=== PATIENT | male | born 1945 | race Caucasian/White ===

== ENCOUNTER 2018-02-11 08:54 | Emergency (ER) | payer MEDICARE ==
[2018-02-11 09:02] VITALS: RESP 18
--- NOTE | 2018-02-11 09:13 | ED ---
General Adult HPI - General Chief complaint: Chest Pain Stated complaint: RT LUNG PAIN Time Seen by Provider: 02/11/18 09:07 Source: patient, RN notes reviewed Mode of arrival: ambulatory Limitations: no limitations - History of Present Illness Initial comments: Patient is a pleasant 72-year-old male presenting to the emergency Department with right-sided chest discomfort. Symptoms have been present for close to 3 weeks now. Discomfort is sharp and does radiate towards the back. Patient does have occasional cough with occasional white sputum. Patient denies dyspnea , nausea, or diaphoresis. Discomfort is increased with position changes. No history of similar symptoms previously. No abdominal pain. No fevers. No leg pain or leg swelling. Symptoms do not worsen with exertion. - Related Data Home Medications Medication Instructions Recorded Confirmed Atorvastatin [Lipitor] 40 mg PO HS 03/12/16 02/11/18 Glucosam/Stephan-Msm1/C/Ivan/Bosw 1 tab PO DAILY 03/12/16 02/11/18 [Glucosamine-Chondroitin Tablet] Lisinopril [Zestril] 10 mg PO DAILY 03/12/16 02/11/18 Rivaroxaban [Xarelto] 20 mg PO HS 03/12/16 02/11/18 Ubidecarenone [Co Q-10] 100 mg PO DAILY 03/12/16 02/11/18 Vitamin B Complex 1 cap PO DAILY 03/12/16 02/11/18 Ascorbic Acid [Vitamin C] 500 mg PO DAILY 02/11/18 02/11/18 Metoprolol Succinate [Toprol XL] 25 mg PO DAILY 02/11/18 02/11/18 Omeprazole 20 mg PO DAILY 02/11/18 02/11/18 Sertraline [Zoloft] 150 mg PO DAILY 02/11/18 02/11/18 traZODone HCL [Desyrel] 100 - 150 mg PO HS PRN 02/11/18 02/11/18 Allergies Allergy/AdvReac Type Severity Reaction Status Date / Time No Known Allergies Allergy Verified 02/11/18 09:45 Review of Systems ROS Statement: Those systems with pertinent positive or pertinent negative responses have been documented in the HPI. ROS Other: All systems not noted in ROS Statement are negative. Constitutional: Denies: fever Eyes: Denies: eye pain ENT: Denies: ear pain Respiratory: Reports: cough. Denies: dyspnea Cardiovascular: Reports: chest pain (Right-sided) Endocrine: Denies: fatigue Gastrointestinal: Denies: abdominal pain Genitourinary: Denies: dysuria Musculoskeletal: Reports: as per HPI Skin: Denies: rash Neurological: Denies: weakness Past Medical History Past Medical History: Atrial Fibrillation, Cancer, Hyperlipidemia, Hypertension , Sleep Apnea/CPAP/BIPAP, Thyroid Disorder Additional Past Medical History / Comment(s): Afib in past but none since cardiac ablation, thyroid nodule that spouse believes was cancerous, MITZI-has a CPAP but does not use, shrapnel R leg, bilateral legs varicosities. History of Any Multi-Drug Resistant Organisms: None Reported Past Surgical History: Cardiac Ablation, Orthopedic Surgery, Tonsillectomy Additional Past Surgical History / Comment(s): thyroid lobecotomy, colonoscopy, L knee arthroscopy. Past Anesthesia/Blood Transfusion Reactions: No Reported Reaction Past Psychological History: No Psychological Hx Reported Smoking Status: Never smoker Past Alcohol Use History: None Reported Past Drug Use History: None Reported - Past Family History Father Family Medical History: Cancer Additional Family Medical History / Comment(s): Father of melanoma at the age of 64yrs. Grandfather on paternal side also had melanoma. Mother Family Medical History: No Reported History Additional Family Medical History / Comment(s): Mother was healthy. She at the age of 88yrs. General Exam Limitations: no limitations General appearance: alert, in no apparent distress Head exam: Present: atraumatic Eye exam: Present: normal appearance, PERRL ENT exam: Present: normal oropharynx Neck exam: Present: normal inspection Respiratory exam: Present: normal lung sounds bilaterally. Absent: chest wall tenderness Cardiovascular Exam: Present: regular rate, normal rhythm Expanded Peripheral pulses: 2+: Radial (R), Radial (L), Posterior Tibialis (R), Posterior Tibialis (L) GI/Abdominal exam: Present: soft. Absent: tenderness Extremities exam: Present: normal inspection. Absent: pedal edema, calf tenderness Neurological exam: Present: alert Psychiatric exam: Present: normal affect, normal mood Skin exam: Present: normal color Course Vital Signs 02/11/18 02/11/18 08:57 11:30 Temperature 97.8 F 98 F Pulse Rate 53 L 56 L Respiratory 18 18 Rate Blood Pressure 155/75 119/54 O2 Sat by Pulse 96 98 Oximetry EKG Findings - EKG Comments: EKG Findings:: Sinus bradycardia 56. CT 196. QRS 92. QT 420. QTc 405. Normal axis. Normal QRS. No acute ST change. Medical Decision Making - Medical Decision Making Patient reevaluated and resting comfortably in bed. Patient and family updated on results. Patient is made aware of limitations of cardiac testing and emergency department. Patient is felt to be low risk for heart disease. In addition patient states he did have a negative stress test approximately one month ago. Patient does them straight medical decision making. Patient is made aware that heart attack and risk for heart attack as well as other problems have not been completely ruled out at this time. Despite this patient does not want to stay in the hospital. Patient was recommended to consider hospitalization. Patient refuses hospitalization but is in agreement to follow- up with his primary care physician. - Lab Data Result diagrams: 02/11/18 09:20 02/11/18 09:20 Lab Results 02/11/18 02/11/18 02/11/18 Range/Units 09:20 09:20 09:20 WBC 6.2 (3.8-10.6) k/uL RBC 4.69 (4.30-5.90) m/uL Hgb 14.7 (13.0-17.5) gm/dL Hct 43.5 (39.0-53.0) % MCV 92.6 (80.0-100.0) fL MCH 31.2 (25.0-35.0) pg MCHC 33.7 (31.0-37.0) g/dL RDW 13.5 (11.5-15.5) % Plt Count 158 (150-450) k/uL Neutrophils % 70 % Lymphocytes % 19 % Monocytes % 6 % Eosinophils % 4 % Basophils % 1 % Neutrophils # 4.3 (1.3-7.7) k/uL Lymphocytes # 1.2 (1.0-4.8) k/uL Monocytes # 0.4 (0-1.0) k/uL Eosinophils # 0.2 (0-0.7) k/uL Basophils # 0.0 (0-0.2) k/uL PT (9.0-12.0) sec INR (<1.2) APTT (22.0-30.0) sec D-Dimer (<0.60) mg/L FEU Sodium 140 (137-145) mmol/L Potassium 4.5 (3.5-5.1) mmol/L Chloride 107 (98-107) mmol/L Carbon Dioxide 23 (22-30) mmol/L Anion Gap 10 mmol/L BUN 22 H (9-20) mg/dL Creatinine 0.89 (0.66-1.25) mg/dL Est GFR (CKD-EPI)AfAm >90 (>60 ml/min/1.73 sqM) Est GFR (CKD-EPI)NonAf 86 (>60 ml/min/1.73 sqM) Glucose 110 H (74-99) mg/dL Calcium 9.8 (8.4-10.2) mg/dL Magnesium 1.9 (1.6-2.3) mg/dL Total Bilirubin 1.8 H (0.2-1.3) mg/dL AST 28 (17-59) U/L ALT 50 (21-72) U/L Alkaline Phosphatase 76 (38-126) U/L Total Creatine Kinase 67 (55-170) U/L CK-MB (CK-2) 1.4 (0.0-2.4) ng/mL CK-MB (CK-2) Rel Index 2.1 Troponin I <0.012 (0.000-0.034) ng/mL Total Protein 6.7 (6.3-8.2) g/dL Albumin 3.9 (3.5-5.0) g/dL 02/11/18 Range/Units 09:20 WBC (3.8-10.6) k/uL RBC (4.30-5.90) m/uL Hgb (13.0-17.5) gm/dL Hct (39.0-53.0) % MCV (80.0-100.0) fL MCH (25.0-35.0) pg MCHC (31.0-37.0) g/dL RDW (11.5-15.5) % Plt Count (150-450) k/uL Neutrophils % % Lymphocytes % % Monocytes % % Eosinophils % % Basophils % % Neutrophils # (1.3-7.7) k/uL Lymphocytes # (1.0-4.8) k/uL Monocytes # (0-1.0) k/uL Eosinophils # (0-0.7) k/uL Basophils # (0-0.2) k/uL PT 10.9 (9.0-12.0) sec INR 1.1 (<1.2) APTT 29.8 (22.0-30.0) sec D-Dimer 0.36 (<0.60) mg/L FEU Sodium (137-145) mmol/L Potassium (3.5-5.1) mmol/L Chloride (98-107) mmol/L Carbon Dioxide (22-30) mmol/L Anion Gap mmol/L BUN (9-20) mg/dL Creatinine (0.66-1.25) mg/dL Est GFR (CKD-EPI)AfAm (>60 ml/min/1.73 sqM) Est GFR (CKD-EPI)NonAf (>60 ml/min/1.73 sqM) Glucose (74-99) mg/dL Calcium (8.4-10.2) mg/dL Magnesium (1.6-2.3) mg/dL Total Bilirubin (0.2-1.3) mg/dL AST (17-59) U/L ALT (21-72) U/L Alkaline Phosphatase (38-126) U/L Total Creatine Kinase (55-170) U/L CK-MB (CK-2) (0.0-2.4) ng/mL CK-MB (CK-2) Rel Index Troponin I (0.000-0.034) ng/mL Total Protein (6.3-8.2) g/dL Albumin (3.5-5.0) g/dL - Radiology Data Radiology results: image reviewed (Chest x-ray shows no acute process) Disposition Clinical Impression: Chest pain Disposition: HOME SELF-CARE Condition: Stable Instructions: Chest Pain (ED) Additional Instructions: Please follow-up with primary care physician in the beginning of the week. Return for increased pain, change in location of discomfort, difficulty breathing, vomiting, sweating, fevers, worsening symptoms or other concerns. Is patient prescribed a controlled substance at d/c from ED?: No Referrals: Alex Hernandez DO [Primary Care Provider] - 1-2 days Time of Disposition: 12:12
--- NOTE | 2018-02-11 09:41 | XR ---
EXAMINATION TYPE: XR chest 2V DATE OF EXAM: 02/11/2018 COMPARISON: 03/12/2016 HISTORY: Shortness of breath TECHNIQUE: Frontal and lateral views of the chest are obtained. FINDINGS: Scattered senescent parenchymal changes noted. No evidence for infiltrate. No evidence for atelectasis. Heart size is stable. Mediastinal structures are stable and grossly unremarkable. No evidence for hilar prominence. Degenerative changes dorsal spine. IMPRESSION: 1. No evidence for acute pulmonary disease.
[2018-02-11 09:43] LABS: Basophils % (A) 1 %; Eosinophils # (A) 0.2 k/uL (0-0.7); Eosinophils % (A) 4 %; HCT 43.5 % (39.0-53.0); HGB 14.7 gm/dL (13.0-17.5); Lymphocytes # (A) 1.2 k/uL (1.0-4.8); Lymphocytes % (A) 19 %; MCH 31.2 pg (25.0-35.0); MCHC 33.7 g/dL (31.0-37.0); MCV 92.6 fL (80.0-100.0); Mean Platelet Volume 9.1; Monocytes # (A) 0.4 k/uL (0-1.0); Monocytes % (A) 6 %; Neutrophils # (A) 4.3 k/uL (1.3-7.7); Neutrophils % (A) 70 %; Platelet Count 158 k/uL (150-450); RBC 4.69 m/uL (4.30-5.90); RDW 13.5 % (11.5-15.5); WBC 6.2 k/uL (3.8-10.6)
[2018-02-11 09:53] LABS: ALT 50 U/L (21-72); AST 28 U/L (17-59); Albumin 3.9 g/dL (3.5-5.0); Alkaline Phosphatase 76 U/L (38-126); Anion Gap 10 mmol/L; Blood Urea Nitrogen 22 mg/dL (9-20); Calcium 9.8 mg/dL (8.4-10.2); Carbon Dioxide 23 mmol/L (22-30); Chloride 107 mmol/L (98-107); Glucose 110 mg/dL (74-99); Magnesium 1.9 mg/dL (1.6-2.3); Potassium 4.5 mmol/L (3.5-5.1); Sodium 140 mmol/L (137-145); Total Bilirubin 1.8 mg/dL (0.2-1.3); Total Protein 6.7 g/dL (6.3-8.2)
[2018-02-11 10:00] LABS: D-Dimer 0.36 mg/L FEU (<0.60); INR 1.1 (<1.2); Partial Thromboplastin Time 29.8 sec (22.0-30.0); Prothrombin Time 10.9 sec (9.0-12.0)
[2018-02-11 10:13] LABS: Creatine Kinase 67 U/L (55-170)
[2018-02-11 10:26] LABS: Creatine Kinase MB 1.4 ng/mL (0.0-2.4); Troponin I <0.012 ng/mL (0.000-0.034)
--- NOTE | 2018-02-11 10:46 | US ---
EXAMINATION TYPE: US gallbladder DATE OF EXAM: 02/11/2018 COMPARISON: NONE CLINICAL HISTORY: Pain. Patient states having right lung pain. Patient states having two cups of cof fee. EXAM MEASUREMENTS: Liver Length: 14.9 cm Gallbladder Wall: 0.2 cm CBD: 0.4 cm CHD: 0.3 cm Right Kidney: 10.8 x 4.8 x 6.7 cm Limited visualization due to overlying bowel gas and patient body habitus Pancreas: Obscured by bowel gas Liver: Limited visualization due to patient body habitus and overlying bowel gas Gallbladder: Not well distended due to non NPO status Evidence for sonographic Almazan's sign: neg CBD: wnl CHD: wnl Right Kidney: wnl Pancreas is suboptimally evaluated on images saved secondary to shadowing from overlying bowel gas. V isualized portion of liver is heterogeneous without intrahepatic ductal dilatation. Significant porti ons are obscured by overlying bowel gas and lung air making evaluation suboptimal for masses. Gallbla dder is somewhat contracted without shadowing mobile gallstones. IMPRESSION: Suboptimal study, no shadowing mobile gallstones or ultrasound evidence for acute cholecy stitis.
[2018-02-11 11:32] VITALS: TEMP 98
[2018-02-11 12:29] VITALS: BP 122/64; PULSE 58
== END 2018-02-11 12:29 | disposition home or self-care (01) ==
LOC: EC 08:54
DX: R07.89 Other chest pain (principal); R05 Cough; I48.91 Unspecified atrial fibrillation; E78.5 Hyperlipidemia, unspecified; I10 Essential (primary) hypertension; E07.9 Disorder of thyroid, unspecified; Z85.9 Personal history of malignant neoplasm, unspecified; Z79.01 Long term (current) use of anticoagulants; Z79.899 Other long term (current) drug therapy; Z98.890 Other specified postprocedural states; Z53.29 Procedure and treatment not carried out because of patient's decision for other reasons
CPT/HCPCS: 36415; 71046; 76705; 80053; 82550; 82553; 83735; 84484; 85025; 85379; 85610; 85730; 93005; 99285

== ENCOUNTER 2021-11-04 09:47 | Inpatient (IN) | payer OTHER, MEDICARE ==
[2021-11-04] MEDS ORDERED: VANCOMYCIN IV PER PHARMACY 1 EACH MISC MISCELLANE PRN (10:33)
[2021-11-04] MEDS ORDERED: DIPH,PERTUS(ACELL)TETVAC-LF 0.5 ML VIAL IM ONE (10:44)
[2021-11-04] MEDS ORDERED: VANCOMYCIN 2,250 MG in SODIUM CHLORIDE 0.9% 500 ML 500 ML IVPB ONE (11:00)
[2021-11-04 11:08] LABS: Basophils # (A) 0.1 k/uL (0-0.2); Basophils % (A) 0 %; Eosinophils # (A) 0.2 k/uL (0-0.7); Eosinophils % (A) 1 %; HCT 46.2 % (39.0-53.0); HGB 14.9 gm/dL (13.0-17.5); Lymphocytes # (A) 1.3 k/uL (1.0-4.8); Lymphocytes % (A) 9 %; MCH 31.6 pg (25.0-35.0); MCHC 32.3 g/dL (31.0-37.0); MCV 97.9 fL (80.0-100.0); Mean Platelet Volume 9.2; Monocytes # (A) 0.8 k/uL (0-1.0); Monocytes % (A) 6 %; Neutrophils # (A) 11.9 k/uL (1.3-7.7); Neutrophils % (A) 82 %; Platelet Count 177 k/uL (150-450); RBC 4.72 m/uL (4.30-5.90); WBC 14.5 k/uL (3.8-10.6)
--- NOTE | 2021-11-04 11:13 | ED ---
Skin/Abscess/FB HPI - General Chief complaint: Skin/Abscess/Foreign Body Stated complaint: Infection on leg Time Seen by Provider: 11/04/21 10:23 Source: patient Mode of arrival: ambulatory Limitations: no limitations - History of Present Illness Initial comments: Patient is a 76-year-old male presenting with chief complaint of wound to the right lower leg. Patient states about 3 days ago he hit the back of his lower leg in his garage, causing a cut. Patient had been washing the wound with peroxide and keeping a bandage over it. States yesterday he noticed a headache and chills. States that today he noticed redness, swelling, and tenderness. P dhiraj has history of diabetes. Does not know when his last tetanus shot was. Denies any numbness, tingling, loss of range of motion, fever, nausea, vomiting, abdominal pain, chest pain, shortness of breath, vision or hearing changes. - Related Data Home Medications Medication Instructions Recorded Confirmed Atorvastatin [Lipitor] 40 mg PO HS 03/12/16 02/11/18 Glucosam/Stephan-Msm1/C/Ivan/Bosw 1 tab PO DAILY 03/12/16 02/11/18 [Glucosamine-Chondroitin Tablet] Rivaroxaban [Xarelto] 20 mg PO HS 03/12/16 02/11/18 Ubidecarenone [Co Q-10] 100 mg PO DAILY 03/12/16 02/11/18 Vitamin B Complex 1 cap PO DAILY 03/12/16 02/11/18 lisinopriL [Zestril] 10 mg PO DAILY 03/12/16 02/11/18 Ascorbic Acid [Vitamin C] 500 mg PO DAILY 02/11/18 02/11/18 Metoprolol Succinate [Toprol XL] 25 mg PO DAILY 02/11/18 02/11/18 Omeprazole 20 mg PO DAILY 02/11/18 02/11/18 Sertraline [Zoloft] 150 mg PO DAILY 02/11/18 02/11/18 traZODone HCL [Desyrel] 100 - 150 mg PO HS PRN 02/11/18 02/11/18 Allergies Allergy/AdvReac Type Severity Reaction Status Date / Time No Known Allergies Allergy Verified 11/04/21 10:16 Review of Systems ROS Statement: Those systems with pertinent positive or pertinent negative responses have been documented in the HPI. ROS Other: All systems not noted in ROS Statement are negative. Past Medical History Past Medical History: Atrial Fibrillation, Cancer, Diabetes Mellitus, Hyperlipidemia, Hypertension, Sleep Apnea/CPAP/BIPAP, Thyroid Disorder Additional Past Medical History / Comment(s): Afib in past but none since cardiac ablation, thyroid nodule that spouse believes was cancerous, MITZI-has a CPAP but does not use, shrapnel R leg, bilateral legs varicosities. History of Any Multi-Drug Resistant Organisms: None Reported Past Surgical History: Cardiac Ablation, Orthopedic Surgery, Tonsillectomy Additional Past Surgical History / Comment(s): thyroid lobecotomy, colonoscopy, L knee arthroscopy. Past Anesthesia/Blood Transfusion Reactions: No Reported Reaction Past Psychological History: No Psychological Hx Reported Smoking Status: Never smoker Past Alcohol Use History: None Reported Past Drug Use History: None Reported - Past Family History Father Family Medical History: Cancer Additional Family Medical History / Comment(s): Father of melanoma at the age of 64yrs. Grandfather on paternal side also had melanoma. Mother Family Medical History: No Reported History Additional Family Medical History / Comment(s): Mother was healthy. She at the age of 88yrs. General Exam Limitations: no limitations General appearance: alert, in no apparent distress Head exam: Present: atraumatic, normocephalic, normal inspection Eye exam: Present: normal appearance, EOMI. Absent: scleral icterus, sujata orbital swelling Neck exam: Present: normal inspection Respiratory exam: Present: normal lung sounds bilaterally. Absent: respiratory distress, wheezes, rales, rhonchi, stridor Cardiovascular Exam: Present: regular rate, normal rhythm, normal heart sounds. Absent: systolic murmur, diastolic murmur, rubs, gallop, clicks Right Lower Leg exam: Present: full ROM, tenderness, swelling, erythema Neurological exam: Present: alert, oriented X3, CN II-XII intact Psychiatric exam: Present: normal affect, normal mood Skin exam: Present: warm, dry, intact, normal color. Absent: rash Course Vital Signs 11/04/21 11/04/21 10:13 11:09 Temperature 98.8 F Pulse Rate 113 H 110 H Respiratory 22 20 Rate Blood Pressure 150/89 150/90 O2 Sat by Pulse 98 98 Oximetry Medical Decision Making - Medical Decision Making Patient is a 76-year-old male with history of diabetes presenting with chief complaint of right lower leg wound. The patient states that he cut the leg 3 days ago while in his garage, states that today he noticed redness, swelling, tenderness. On examination patient is tachycardic and afebrile. Left lower leg has circumferential redness, there is purulent drainage from the wound, tendern ess on palpation. WBC is 14.5 with left shift. Bilirubin is 3.0, patient denies any abdominal pain, nausea, vomiting. Patient is given IV vancomycin and cefazolin, he will be admitted for IV antibio tics. Patient is given 1 L normal saline fluid bolus as well as placed on a maintenance rate of 130 mL per hour. Tetanus is updated. I spoke with Dr. Puckett who agreed to admit the patient. I discussed these findings and the plan with the patient, he was in agreement. I discussed this case with my attending Dr. Gallegos. - Lab Data Result diagrams: 11/04/21 10:43 11/04/21 10:43 Lab Results 11/04/21 11/04/21 11/04/21 Range/Units 10:43 10:43 10:43 WBC 14.5 H (3.8-10.6) k/uL RBC 4.72 (4.30-5.90) m/uL Hgb 14.9 (13.0-17.5) gm/dL Hct 46.2 (39.0-53.0) % MCV 97.9 (80.0-100.0) fL MCH 31.6 (25.0-35.0) pg MCHC 32.3 (31.0-37.0) g/dL RDW 13.0 (11.5-15.5) % Plt Count 177 (150-450) k/uL MPV 9.2 Neutrophils % 82 % Lymphocytes % 9 % Monocytes % 6 % Eosinophils % 1 % Basophils % 0 % Neutrophils # 11.9 H (1.3-7.7) k/uL Lymphocytes # 1.3 (1.0-4.8) k/uL Monocytes # 0.8 (0-1.0) k/uL Eosinophils # 0.2 (0-0.7) k/uL Basophils # 0.1 (0-0.2) k/uL Sodium 140 (137-145) mmol/L Potassium 4.3 (3.5-5.1) mmol/L Chloride 102 (98-107) mmol/L Carbon Dioxide 27 (22-30) mmol/L Anion Gap 11 mmol/L BUN 15 (9-20) mg/dL Creatinine 0.99 (0.66-1.25) mg/dL Est GFR (CKD-EPI)AfAm 86 (>60 ml/min/1.73 sqM) Est GFR (CKD-EPI)NonAf 74 (>60 ml/min/1.73 sqM) Glucose 134 H (74-99) mg/dL Plasma Lactic Acid Abdon 1.8 (0.7-2.0) mmol/L Calcium 9.2 (8.4-10.2) mg/dL Total Bilirubin 3.0 H (0.2-1.3) mg/dL AST 16 L (17-59) U/L ALT 17 (4-49) U/L Alkaline Phosphatase 88 (38-126) U/L Total Protein 6.9 (6.3-8.2) g/dL Albumin 4.1 (3.5-5.0) g/dL Disposition Clinical Impression: Cellulitis Disposition: ADMITTED IP TO THIS [facility] Condition: Fair Time of Disposition: 11:59 Decision to Admit Reason: Admit from EC Decision Date: 11/04/21 Decision Time: 11:59
[2021-11-04 11:22] LABS: Albumin 4.1 g/dL (3.5-5.0); Calcium 9.2 mg/dL (8.4-10.2); Potassium 4.3 mmol/L (3.5-5.1); Total Protein 6.9 g/dL (6.3-8.2)
[2021-11-04] MEDS ORDERED: SODIUM CHLORIDE 0.9% 1,000 ML IV ONE (11:23)
--- NOTE | 2021-11-04 11:48 | XR ---
EXAMINATION TYPE: XR tibia fibula RT DATE OF EXAM: 11/04/2021 CLINICAL HISTORY: Injury 3 days ago with pain and focal redness TECHNIQUE: Two views of the right leg are obtained. COMPARISON: None. FINDINGS: There is no acute fracture or dislocation seen in the right tibia or fibula. Moderate narr owing and spurring patellofemoral and medial tibiofemoral compartments and the right knee are present . Right Ankle joint is maintained. [id number] diffuse subcutaneous edema. No suspicious bony de struction. IMPRESSION: As above.
[2021-11-04] MEDS: SODIUM CHLORIDE 0.9% 1,000 ML IV SCH ×2 (12:03→17:44)
[2021-11-04] MEDS ORDERED: KETOROLAC 15 MG/ML 1 ML VIAL IVP PRN (12:25)
[2021-11-04] MEDS ORDERED: ACETAMINOPHEN TAB 325 MG TAB PO PRN (12:25)
[2021-11-04] MEDS ORDERED: NALOXONE 0.4 MG/ML 1 ML VIAL IV PRN (12:25)
[2021-11-04] MEDS ORDERED: IBUPROFEN 400 MG TAB PO PRN (12:25)
[2021-11-04] MEDS ORDERED: NON FORMULARY DRUG (Vitamin B Complex [Vitamin B Complex] 1 EACH Capsule) PO SCH (17:30)
[2021-11-04] MEDS: LOSARTAN 50 MG TAB PO SCH (17:43)
[2021-11-04] MEDS: METOPROLOL SUCCINATE (ER) 25 MG TAB.ER.24H PO SCH (17:43)
[2021-11-04] MEDS: ATORVASTATIN 40 MG TAB PO SCH (17:43)
[2021-11-04] MEDS: RIVAROXABAN 20 MG TAB PO SCH (17:43)
[2021-11-04 22:37] LABS: Glucose,Whole Blood 102 mg/dL (70-110)
--- NOTE | 2021-11-04 23:25 | P.CONS ---
History of Present Illness - Reason for Consult Consult date: 11/04/21 - History of Present Illness Patient is a 76-year-old male apparently did have a cut to the right lower leg from a cardboard that happened about 3 days ago patient mention he washed of the wound with peroxide and has been keeping a Band-Aid on it yesterday the patient noticed to having some headache and chills and subsequently noticed in the right leg becoming swollen and red and painful it is usually painful to touch patient is currently doing well. Initial intensity 5-6 out of 10 and no radiation of with associated swelling redness but no foul- smelling drainage patient was evaluated by the ER physician on arrival to the ER the patient was afebrile and no fever have been recorded subsequently patient di d have white count of 14.5 with a left shift kidney function has been normal local cultures obtained currently pending patient was started on cefazolin also received vancomycin infectious disease was consulted for further management of antibiotic therapy patient did have x-rays of the right leg which showed some soft tissue edema but no foreign body Past Medical History Past Medical History: Atrial Fibrillation, Cancer, Diabetes Mellitus, Hyperlipidemia, Hypertension, Sleep Apnea/CPAP/BIPAP, Thyroid Disorder Additional Past Medical History / Comment(s): Afib in past but none since cardiac ablation, thyroid nodule that spouse believes was cancerous, MITZI-has a CPAP but does not use, shrapnel R leg, bilateral legs varicosities. History of Any Multi-Drug Resistant Organisms: None Reported Past Surgical History: Cardiac Ablation, Orthopedic Surgery, Tonsillectomy Additional Past Surgical History / Comment(s): thyroid lobecotomy, colonoscopy, L knee arthroscopy. Past Anesthesia/Blood Transfusion Reactions: No Reported Reaction Past Psychological History: No Psychological Hx Reported Smoking Status: Never smoker Past Alcohol Use History: None Reported Past Drug Use History: None Reported - Past Family History Father Family Medical History: Cancer Additional Family Medical History / Comment(s): Father of melanoma at the age of 64yrs. Grandfather on paternal side also had melanoma. Mother Family Medical History: No Reported History Additional Family Medical History / Comment(s): Mother was healthy. She at the age of 88yrs. Medications and Allergies Home Medications Medication Instructions Recorded Confirmed Type Atorvastatin [Lipitor] 40 mg PO W/SUPPER 03/12/16 11/04/21 History Rivaroxaban [Xarelto] 20 mg PO W/SUPPER 03/12/16 11/04/21 History Vitamin B Complex 1 cap PO W/SUPPER 03/12/16 11/04/21 History Metoprolol Succinate [Toprol XL] 25 mg PO W/SUPPER 02/11/18 11/04/21 History Omeprazole 20 mg PO AC-SUPPER 02/11/18 11/04/21 History Cholecalciferol (Vitamin D3) 75 mcg PO W/SUPPER 11/04/21 11/04/21 History [Vitamin D3 (3000 Iu)] Losartan [Cozaar] 50 mg PO W/SUPPER 11/04/21 11/04/21 History Turmeric Root Extract [Turmeric] 500 mg PO W/SUPPER 11/04/21 11/04/21 History metFORMIN HCL [Glucophage] 500 mg PO BID-W/MEALS 11/04/21 11/04/21 History Allergies Allergy/AdvReac Type Severity Reaction Status Date / Time No Known Allergies Allergy Verified 11/04/21 13:59 Physical Exam Vitals: Vital Signs Temp Pulse Resp BP Pulse Ox 11/04/21 15:59 98.7 F 114 H 18 172/87 95 11/04/21 11:09 110 H 20 150/90 98 11/04/21 10:13 98.8 F 113 H 22 150/89 98 Intake and Output 11/04/21 11/04/21 11/04/21 06:59 14:59 22:59 Other: Weight 140.614 kg Results CBC & Chem 7: 11/04/21 10:43 11/04/21 10:43 Labs: Abnormal Lab Results - Last 24 Hours (Table) 11/04/21 11/04/21 Range/Units 10:43 10:43 WBC 14.5 H (3.8-10.6) k/uL Neutrophils # 11.9 H (1.3-7.7) k/uL Glucose 134 H (74-99) mg/dL Total Bilirubin 3.0 H (0.2-1.3) mg/dL AST 16 L (17-59) U/L Microbiology - Last 24 Hours (Table) 11/04/21 10:43 Wound Culture - Preliminary Leg - Right Assessment and Plan Plan: 1patient with right lower extremity cellulitis with diffuse swelling and redness in this patient with a history of trauma with a cut to the right posterior leg likely initiating factor for the cellulitis and will need to cover for the gram-positive skin marie to the likely pathogen. 2local culture has been obtained those will be followed. 3cefazolin 2 g every 8 hours while waiting for the culture to finalize. We will follow on clinical condition and cultures to further adjust medication if needed Thank you for this consultation will follow this patient along with you Time with Patient: Greater than 30
[2021-11-05] MEDS: SODIUM CHLORIDE 0.9% 1,000 ML IV SCH ×3 (00:32→17:06)
[2021-11-05] MEDS: VANCOMYCIN 2,000 MG in SODIUM CHLORIDE 0.9% 500 ML 500 ML IVPB SCH ×2 (03:57→16:01)
[2021-11-05 05:49] LABS: ALT 13 U/L (4-49); AST 16 U/L (17-59); African American GFR (CKD) >90 (>60 ml/min/1.73 sqM); Albumin 3.4 g/dL (3.5-5.0); Albumin/Globulin Ratio 1.3; Alkaline Phosphatase 77 U/L (38-126); Anion Gap 9 mmol/L; Blood Urea Nitrogen 14 mg/dL (9-20); Calcium 8.5 mg/dL (8.4-10.2); Carbon Dioxide 25 mmol/L (22-30); Chloride 105 mmol/L (98-107); Globulin 2.6 g/dL; Glucose 111 mg/dL (74-99); Non-African American GFR(CKD) 83 (>60 ml/min/1.73 sqM); Sodium 139 mmol/L (137-145); Total Bilirubin 2.2 mg/dL (0.2-1.3)
[2021-11-05 07:35] LABS: Glucose,Whole Blood 113 mg/dL (70-110)
--- NOTE | 2021-11-05 08:40 | HP ---
HISTORY AND PHYSICAL CHIEF COMPLAINT: Pain and swelling of the right leg. HISTORY OF PRESENT ILLNESS: This 76-year-old gentleman with a past medical history of multiple medical problems, including atrial fibrillation, diabetes mellitus type 2, being followed in the outpatient setting, apparently had injury of the back of the right leg in the garage few days ago. Subsequently, last night the patient developed chills, rigor and as well as increasing swelling and redness around the middle part of the right leg and the patient came to [facility] for evaluation and treatment. There is no history of any headache or loss of consciousness or seizures. PAST MEDICAL HISTORY: History of atrial fibrillation, diabetes mellitus type 2. Other history reviewed. HOME MEDICATIONS: Also reviewed include vitamin D3. Doses and rest of medications reviewed. ALLERGIES: Unknown. FAMILY HISTORY: History of cancer in the family. SOCIAL HISTORY: No history of smoking, alcohol. REVIEW OF SYSTEMS: 14-point review is negative as mentioned earlier. PHYSICAL EXAMINATION: VITAL SIGNS: Pulse is 114, blood pressure 172/87, respirations 18. HEENT: Conjunctivae normal. NECK: No jugular venous distention. CARDIOVASCULAR: S1, S2 muffled. RESPIRATION: Breath sounds diminished at the bases. No rhonchi. No crackles. ABDOMEN: Soft, nontender. LEGS: Significant pain and swelling and tenderness of the right leg, mid part of the leg present. NERVOUS SYSTEM: No focal deficit. SKIN: As mentioned earlier. LABORATORY DATA: WBC 14.5, other labs are noted. ASSESSMENT: 1. Acute cellulitis of the right mid leg with ulcer. 2. Diabetes mellitus, type 2. 3. Hypertension. 4. Hyperlipidemia. 5. Multiple medical issues. RECOMMENDATIONS AND DISCUSSION: This 76-year-old gentleman presented with multiple complex medical issues, we will monitor the patient closely, initiate broad-spectrum IV antibiotics and Infectious Disease evaluation. Resume the home medications. Symptomatic treatment. Prognosis guarded. We will obtain the cultures. Further recommendations to follow. MMODL / IJN: [id number] / FERNANDO
[2021-11-05 09:05] LABS: Basophils # (A) 0.05 X 10*3/uL (0.00-0.10); Basophils % (A) 0.4 %; Eosinophils # (A) 0.08 X 10*3/uL (0.04-0.35); Eosinophils % (A) 0.7 %; HCT 41.3 % (39.6-50.0); HGB 13.4 g/dL (13.0-17.0); Immature Grans, Automated 0.3 %; Lymphocytes # (A) 1.75 X 10*3/uL (0.90-5.00); Lymphocytes % (A) 15.2 %; MCH 30.8 pg (27.0-32.0); MCHC 32.4 g/dL (32.0-37.0); MCV 94.9 fL (80.0-97.0); Mean Platelet Volume 12.2 fL (9.5-12.2); Monocytes # (A) 0.95 X 10*3/uL (0.20-1.00); Monocytes % (A) 8.3 %; NRBC Per 100 WBC 0 /100 WBCS (0.0-0.0); Neutrophils # (A) 8.62 X 10*3/uL (1.80-7.70); Neutrophils % (A) 75.1 %; Platelet Count 169 X 10*3/uL (140-440); RBC 4.35 X 10*6/uL (4.40-5.60); RDW 13.2 % (11.5-14.5); WBC 11.48 X 10*3/uL (4.50-10.00)
[2021-11-05 12:07] LABS: Glucose,Whole Blood 125 mg/dL (70-110)
--- NOTE | 2021-11-05 12:46 | CDI ---
Documentation Clarification Form Date: 11/05/2021 12:35:21 PM From: Ronda Howell CCS, CCDS Admit Date: 11/04/2021 12:41:00 PM Patient Name: Saúl Connolly Visit Number: [id number] Discharge Date: ATTENTION: The Clinical Documentation Specialists (CDI) and [facility] Coding Staff appreciate your assistance in clarifying documentation. Please respond to the clarification below the line at the bottom and electronically sign. The CDI & [facility] Coding staff will review the response and follow-up if needed. Please note: Queries are made part of the Legal Health Record. If you have any questions, please contact the author of this message via ITS. Dr. Ian Fisher: Per the 11/04 History & Physical the patient is admitted with Acute Cellulitis of the Right Mid Leg with Ulcer and also has Diabetes Mellitus Type II. Please clarify if there is a relationship between the diagnosis of Cellulitis and DM. History/Risk Factors per the 11/04 H/P: DM II, Hypertension, Hyperlipidemia, Atrial Fibrillation status post Ablation. Clinical Indicators: Presented to the ED on 11/04 with a wound to the right lower leg with redness, swelling and tenderness and also headache & chills. The patient injured his leg by cutting it on a piece of cardboard in his garage 3 days earlier, treated at home with Peroxide & bandaged. Admit with Cellulitis Right Lower Leg. 11/04 VS: T 98.8, P 113, R 22, BP 150/89, PO 98 RA, BMI: 39.8 11/04 LAB: WBC 14.5, Neutrophils 11.9; Glucose 134, Total Bilirubin 3.0, AST 16. 11/04 XRay Right Tibia: No fracture, moderate narrowing & spurring patellofemoral & medial tibiofemoral compartments and the right knee present. Mild-moderate diffuse subcutaneous edema, no bony destruction. Treatment 11/04: Aerobic Wound cultures, Blood cultures, IV Cefazolin 50 mls @ 100 mls/hr x1, IV Vancomycin 500 mls @ 167 mls/hr x1, IV Na Chl 1,000 mls @ 999 mls/hr q1H, IV Na Chl 1,000 mls @ 130 mls/hr q7H, IV Toradol 15 mg q6H/prn, po [id number] mg q6H/prn Home meds: Turmeric, Vit D3, Vit B, Cozaar, Glucophage, Toprol XL, Xarelto, Omeprazole, Lipitor Please clarify the relationship, if any, which is clinically appropriate for this patient: [ ] Cellulitis is related to Diabetes Mellitus [ ] Cellulitis is not related to Diabetes Mellitus [ ] Other explanation of clinical findings (please specify) [ ] Unable to determine (no explanation for clinical findings) (Template Last Revised: May 2020) Cellulitis is related to Diabetes Mellitus MTDD
--- NOTE | 2021-11-05 16:09 | P.PN ---
Subjective Progress Note Date: 11/05/21 This is a 76-year-old male who was recently admitted with gouging injury on the right leg that it become more swollen and red and has been admitted for right leg cellulitis. Patient is currently being maintained on IV antibiotics with infectious disease following and awaiting cultures. Patient is afebrile denies chest pain or shortness of breath. Patient reports having difficulty with sleeping in the bed and in the hospital in general and will add a sleep aid as needed. Patient denies nausea or vomiting and is tolerating diet. Review of systems: Constitutional: No reports of fatigue, fever, or chills Cardiovascular: No reports of chest pain or palpitations Respiratory: No reports of shortness of breath or cough GI: No reports of nausea, no reports of vomiting, no reports of diarrhea : No reports of dysuria or retention Neurovascular: no reports of generalized weakness All medications have been reviewed Active Medications Acetaminophen (Acetaminophen Tab 325 Mg Tab) 650 mg PO Q6HR PRN PRN Reason: Mild Pain or Fever > 100.5 Atorvastatin Calcium (Atorvastatin 40 Mg Tab) 40 mg PO W/SUPPER [facility] Last Admin: 11/04/21 17:43 Dose: 40 mg Sodium Chloride (Saline 0.9%) 1,000 mls @ 130 mls/hr IV .Q7H42M [facility] Last Admin: 11/05/21 00:32 Dose: 130 mls/hr Vancomycin HCl 2,000 mg/ (Sodium Chloride) 500 mls @ 167 mls/hr IVPB Q12H [facility] Last Admin: 11/05/21 03:57 Dose: 167 mls/hr Cefazolin Sodium 2 gm/ Sodium (Chloride) 50 mls @ 100 mls/hr IVPB Q8HR [facility] Last Admin: 11/05/21 08:37 Dose: 100 mls/hr Ibuprofen (Ibuprofen 400 Mg Tab) 400 mg PO Q6HR PRN PRN Reason: Mild Pain or Fever > 100.5 Ketorolac Tromethamine (Ketorolac 15 Mg/Ml 1 Ml Vial) 15 mg IVP Q6HR PRN PRN Reason: Moderate Pain Stop: 11/07/21 12:26 Losartan Potassium (Losartan 50 Mg Tab) 50 mg PO W/SUPPER [facility] Last Admin: 11/04/21 17:43 Dose: 50 mg Metoprolol Succinate (Metoprolol Succinate (Er) 25 Mg Tab.Er.24h) 25 mg PO W/SUPPER [facility] Last Admin: 11/04/21 17:43 Dose: 25 mg Naloxone HCl (Naloxone 0.4 Mg/Ml 1 Ml Vial) 0.2 mg IV Q2M PRN PRN Reason: Opioid Reversal Rivaroxaban (Rivaroxaban 20 Mg Tab) 20 mg PO W/SUPPER [facility]; Protocol Last Admin: 11/04/21 17:43 Dose: 20 mg Temazepam (Temazepam 15 Mg Cap) 15 mg PO HS PRN PRN Reason: Insomnia PHYSICAL EXAMINATION: GENERAL: The patient is alert and oriented x4, Well developed, well nourished. Obese. HEENT: Pupils are round and equally reacting to light. EOMI. no scleral icterus. No conjunctival pallor. Normocephalic, atraumatic. No pharyngeal erythema. No thyromegaly. CARDIOVASCULAR: S1 and S2 muffled PULMONARY: diminished breath sounds bilaterally with no wheezing or rhonchi noted. ABDOMEN: soft. Nontender on exam. obese. non-distended, normoactive bowel sounds. No palpable organomegaly. MUSCULOSKELETAL: No joint swelling or deformity. EXTREMITIES: No cyanosis, clubbing, or pedal edema. Right lower extremity with swelling and erythema with a marked site on the dunn with redness and swelling that has reduced since yesterday, currently wrapped with Kerlix NEUROLOGICAL: Gross neurological examination did not reveal any focal deficits. SKIN: No rashes. Assessment: Acute cellulitis of the right mid leg with ulcer Diabetes mellitus type 2 Hypertension Hyperlipidemia multiple medical issues GI prophylaxis DVT prophylaxis Full code Plan: Recommend to continue with current medications and management with infectious disease following. He should is maintained on IV vancomycin and cefazolin and awaiting finalized cultures. Preliminary culture showing some moderate gram-negative bacilli. Patient reports to having some difficulty with sleep and will add as needed medications and recommend to resume home medications. Will follow-up with repeat labs in the morning. Recommend continue with local wound care and encourage the patient elevate the lower extremity while at rest. Encouraged increased activity as tolerated. Recommend Accu-Cheks before meals and at bedtime and sliding scale if blood sugars become elevated. Blood sugars are currently 125. Due to multiple complex medical issues, prognosis is guarded. The impression and plan of care has been dictated by Erendira Ruiz, nurse practitioner as directed. Dr. Phillip MD I have performed a history and examination and MDM of this patient, discussed the same with the dictator, and agree with the dictator's assessment and plan as written ,documented as a scribe. Based on total visit time, I have performed more than 50% of the visit. Any additional findings or plans will be noted. Objective - Vital Signs Vital signs: Vital Signs Temp 98.7 F 11/05/21 13:21 Pulse 65 11/05/21 13:21 Resp 18 11/05/21 13:21 BP 115/65 11/05/21 13:21 Pulse Ox 95 11/05/21 13:21 FiO2 Intake & Output 11/04/21 11/05/21 11/05/21 18:59 06:59 18:59 Intake Total 360 Balance 360 Weight 140.614 kg Intake: Oral 360 Other: # Voids 1 - Labs CBC & Chem 7: 11/05/21 04:20 11/05/21 04:20 Labs: Abnormal Lab Results - Last 24 Hours (Table) 11/05/21 11/05/21 11/05/21 Range/Units 04:20 04:20 07:33 WBC 11.48 H (4.50-10.00) X 10*3/uL RBC 4.35 L (4.40-5.60) X 10*6/uL Neutrophils # 8.62 H (1.80-7.70) X 10*3/uL Glucose 111 H (74-99) mg/dL POC Glucose (mg/dL) 113 H (70-110) mg/dL Total Bilirubin 2.2 H (0.2-1.3) mg/dL AST 16 L (17-59) U/L Total Protein 6.0 L (6.3-8.2) g/dL Albumin 3.4 L (3.5-5.0) g/dL 11/05/21 Range/Units 12:06 WBC (4.50-10.00) X 10*3/uL RBC (4.40-5.60) X 10*6/uL Neutrophils # (1.80-7.70) X 10*3/uL Glucose (74-99) mg/dL POC Glucose (mg/dL) 125 H (70-110) mg/dL Total Bilirubin (0.2-1.3) mg/dL AST (17-59) U/L Total Protein (6.3-8.2) g/dL Albumin (3.5-5.0) g/dL Microbiology - Last 24 Hours (Table) 11/04/21 10:45 Blood Culture - Preliminary Blood No Growth after 24 hours 11/04/21 10:50 Blood Culture - Preliminary Blood No Growth after 24 hours 11/04/21 10:43 Gram Stain - Preliminary Leg - Right Wound Culture - Preliminary
[2021-11-05] MEDS: METOPROLOL SUCCINATE (ER) 25 MG TAB.ER.24H PO SCH (17:05)
[2021-11-05] MEDS: LOSARTAN 50 MG TAB PO SCH (17:05)
[2021-11-05] MEDS: ATORVASTATIN 40 MG TAB PO SCH (17:05)
[2021-11-05] MEDS: RIVAROXABAN 20 MG TAB PO SCH (17:05)
[2021-11-05 17:22] LABS: Glucose,Whole Blood 98 mg/dL (70-110)
[2021-11-05 21:58] LABS: Glucose,Whole Blood 125 mg/dL (70-110)
[2021-11-05] MEDS: TEMAZEPAM 15 MG CAP PO PRN (21:59)
[2021-11-06] MEDS: VANCOMYCIN 2,000 MG in SODIUM CHLORIDE 0.9% 500 ML 500 ML IVPB SCH (04:13)
[2021-11-06 05:53] LABS: African American GFR (CKD) >90 (>60 ml/min/1.73 sqM); Non-African American GFR(CKD) 81 (>60 ml/min/1.73 sqM)
--- NOTE | 2021-11-06 07:59 | P.PN ---
Subjective Progress Note Date: 11/05/21 Principal diagnosis: Right lower extremity cellulitis Patient is a 76-year-old male with a recent injury to the right lower extremity with a cut and subsequently developing right lower extremity swelling and redness diagnosed with a cellulitis. On today's evaluation that is 11/05/2021, patient denies having any fever or any chills, the patient right lower extremity pain and swelling has slightly decreased, patient denies having any chest pain or shortness of breath or cough no abdominal pain no diarrhea Objective - Vital Signs Vital signs: Vital Signs Temp 98.3 F 11/05/21 08:00 Pulse 87 11/05/21 08:00 Resp 18 11/05/21 08:00 BP 107/65 11/05/21 08:00 Pulse Ox 96 11/05/21 08:00 FiO2 Intake & Output 11/04/21 11/05/21 11/05/21 18:59 06:59 18:59 Intake Total 180 Balance 180 Weight 140.614 kg Intake: Oral 180 Other: # Voids 1 - Exam GENERAL DESCRIPTION: An elderly male lying in bed in no distress RESPIRATORY SYSTEM: Unlabored breathing , decreased breath sounds at bases HEART: S1 S2 regular rate and rhythm , ABDOMEN: Soft , no tenderness EXTREMITIES: Right lower extremity swelling redness is slightly decreased - Labs CBC & Chem 7: 11/05/21 04:20 11/06/21 04:59 Labs: Abnormal Lab Results - Last 24 Hours (Table) 11/05/21 11/05/21 11/05/21 Range/Units 04:20 04:20 07:33 WBC 11.48 H (4.50-10.00) X 10*3/uL RBC 4.35 L (4.40-5.60) X 10*6/uL Neutrophils # 8.62 H (1.80-7.70) X 10*3/uL Glucose 111 H (74-99) mg/dL POC Glucose (mg/dL) 113 H (70-110) mg/dL Total Bilirubin 2.2 H (0.2-1.3) mg/dL AST 16 L (17-59) U/L Total Protein 6.0 L (6.3-8.2) g/dL Albumin 3.4 L (3.5-5.0) g/dL 11/05/21 Range/Units 12:06 WBC (4.50-10.00) X 10*3/uL RBC (4.40-5.60) X 10*6/uL Neutrophils # (1.80-7.70) X 10*3/uL Glucose (74-99) mg/dL POC Glucose (mg/dL) 125 H (70-110) mg/dL Total Bilirubin (0.2-1.3) mg/dL AST (17-59) U/L Total Protein (6.3-8.2) g/dL Albumin (3.5-5.0) g/dL Microbiology - Last 24 Hours (Table) 11/04/21 10:43 Gram Stain - Preliminary Leg - Right Wound Culture - Preliminary Assessment and Plan (1) Cellulitis Current Visit: Yes Status: Acute Code(s): L03.90 - CELLULITIS, UNSPECIFIED SNOMED Code(s): 134096622 Plan: 1patient with right lower extremity cellulitis with diffuse swelling and redness in this patient with a history of trauma with a cut to the right posterior leg likely initiating factor for the cellulitis and will need to cover for the gram-positive skin marie to the likely pathogen. 2local culture has been obtained which are currently pending 3patient seemed to have some clinical improvement and will continue with cefazolin 2 g every 8 hours while waiting for the culture to finalize.
[2021-11-06] MEDS: SODIUM CHLORIDE 0.9% 1,000 ML IV SCH (08:45)
[2021-11-06 09:36] LABS: Basophils # (A) 0.04 X 10*3/uL (0.00-0.10); Basophils % (A) 0.4 %; Eosinophils # (A) 0.22 X 10*3/uL (0.04-0.35); Eosinophils % (A) 2.4 %; HCT 36.7 % (39.6-50.0); HGB 11.9 g/dL (13.0-17.0); Immature Grans, Automated 0.3 %; Lymphocytes # (A) 1.25 X 10*3/uL (0.90-5.00); Lymphocytes % (A) 13.9 %; MCH 31.7 pg (27.0-32.0); MCHC 32.4 g/dL (32.0-37.0); MCV 97.9 fL (80.0-97.0); Mean Platelet Volume 12.2 fL (9.5-12.2); Monocytes # (A) 0.89 X 10*3/uL (0.20-1.00); Monocytes % (A) 9.9 %; NRBC Per 100 WBC 0 /100 WBCS (0.0-0.0); Neutrophils # (A) 6.56 X 10*3/uL (1.80-7.70); Neutrophils % (A) 73.1 %; Platelet Count 162 X 10*3/uL (140-440); RBC 3.75 X 10*6/uL (4.40-5.60); RDW 13.5 % (11.5-14.5); WBC 8.99 X 10*3/uL (4.50-10.00)
[2021-11-06] MEDS ORDERED: FUROSEMIDE 10 MG/ML 4 ML VIAL IV STA (13:01)
[2021-11-06 16:35] LABS: Glucose,Whole Blood 92 mg/dL (70-110)
[2021-11-06] MEDS: ATORVASTATIN 40 MG TAB PO SCH (17:56)
[2021-11-06] MEDS: RIVAROXABAN 20 MG TAB PO SCH (17:56)
[2021-11-06] MEDS: LOSARTAN 50 MG TAB PO SCH (17:57)
[2021-11-06] MEDS: METOPROLOL SUCCINATE (ER) 25 MG TAB.ER.24H PO SCH (17:57)
[2021-11-06 21:16] LABS: Glucose,Whole Blood 129 mg/dL (70-110)
[2021-11-06] MEDS: TEMAZEPAM 15 MG CAP PO PRN (22:41)
--- NOTE | 2021-11-07 03:49 | P.PN ---
Subjective Progress Note Date: 11/06/21 This is a 76-year-old male who was recently admitted with gouging injury on the right leg that it become more swollen and red and has been admitted for right leg cellulitis. Patient is currently being maintained on IV antibiotics with infectious disease following and awaiting cultures. Patient is afebrile denies chest pain or shortness of breath. Patient reports having difficulty with sleeping in the bed and in the hospital in general and will add a sleep aid as needed. Patient denies nausea or vomiting and is tolerating diet. 11/06/2021 Patient is seen today in follow up and continued on IV cefazolin and vanco has been discontinued with ID following and awaiting finalized cultures. Patient with lower extremity swelling and legs currently dependent while sitting in the chair. Encouraged the patient to elevate lower extremities and was also given a dose of IV lasix. Labs reviewed and within normal limits. Blood cultures remain negative. Patient is afebrile and denies chest pain or palpitations. Patient denies shortness of breath with no reports of nausea or vomiting noted. Will need to discuss with ID about discharge planning and if requiring IV antibiotics on discharge. Review of systems: Constitutional: No reports of fatigue, fever, or chills Cardiovascular: No reports of chest pain or palpitations Respiratory: No reports of shortness of breath or cough GI: No reports of nausea, no reports of vomiting, no reports of diarrhea : No reports of dysuria or retention Neurovascular: no reports of generalized weakness, reports right leg swelling All medications have been reviewed Active Medications Acetaminophen (Acetaminophen Tab 325 Mg Tab) 650 mg PO Q6HR PRN PRN Reason: Mild Pain or Fever > 100.5 Atorvastatin Calcium (Atorvastatin 40 Mg Tab) 40 mg PO W/SUPPER [facility] Last Admin: 11/06/21 17:56 Dose: 40 mg Cefazolin Sodium 2 gm/ Sodium (Chloride) 50 mls @ 100 mls/hr IVPB Q8HR [facility] Last Admin: 11/06/21 22:41 Dose: 100 mls/hr Ibuprofen (Ibuprofen 400 Mg Tab) 400 mg PO Q6HR PRN PRN Reason: Mild Pain or Fever > 100.5 Ketorolac Tromethamine (Ketorolac 15 Mg/Ml 1 Ml Vial) 15 mg IVP Q6HR PRN PRN Reason: Moderate Pain Stop: 11/07/21 12:26 Losartan Potassium (Losartan 50 Mg Tab) 50 mg PO W/SUPPER [facility] Last Admin: 11/06/21 17:57 Dose: 50 mg Metoprolol Succinate (Metoprolol Succinate (Er) 25 Mg Tab.Er.24h) 25 mg PO W/SUPPER [facility] Last Admin: 11/06/21 17:57 Dose: 25 mg Naloxone HCl (Naloxone 0.4 Mg/Ml 1 Ml Vial) 0.2 mg IV Q2M PRN PRN Reason: Opioid Reversal Rivaroxaban (Rivaroxaban 20 Mg Tab) 20 mg PO W/SUPPER [facility]; Protocol Last Admin: 11/06/21 17:56 Dose: 20 mg Temazepam (Temazepam 15 Mg Cap) 15 mg PO HS PRN PRN Reason: Insomnia Last Admin: 11/06/21 22:41 Dose: 15 mg PHYSICAL EXAMINATION: GENERAL: The patient is alert and oriented x4, Well developed, well nourished. Obese. HEENT: Pupils are round and equally reacting to light. EOMI. no scleral icterus. No conjunctival pallor. Normocephalic, atraumatic. No pharyngeal erythema. No thyromegaly. CARDIOVASCULAR: S1 and S2 muffled PULMONARY: diminished breath sounds bilaterally with no wheezing or rhonchi noted. ABDOMEN: soft. Nontender on exam. obese. non-distended, normoactive bowel sounds. No palpable organomegaly. MUSCULOSKELETAL: No joint swelling or deformity. EXTREMITIES: No cyanosis, clubbing, or pedal edema. Right lower extremity with swelling and erythema with a marked site on the dunn with redness and swelling that has reduced since yesterday, currently wrapped with Kerlix NEUROLOGICAL: Gross neurological examination did not reveal any focal deficits. SKIN: No rashes. Assessment: Acute cellulitis of the right mid leg with ulcer secondary to DM2 Diabetes mellitus type 2 Hypertension Hyperlipidemia multiple medical issues GI prophylaxis DVT prophylaxis Full code Plan: Recommend to continue with current medications and management with infectious disease following. Patient is maintained on IV cefazolin and vanco is discontinued and awaiting finalized cultures. Preliminary culture showing some moderate gram-negative bacilli. Patient reports to having some continued swelling of the lower extremity and was given a dose of IV lasix. Encouraged the patient to keep the leg elevated as well. Recommend continue with local wound care. Encouraged increased activity as tolerated. Recommend Accu-Cheks before meals and at bedtime and sliding scale if blood sugars become elevated. Blood sugars are currently controlled. Will need to discuss with ID about discharge planning and abx for discharge. Due to multiple complex medical issues, prognosis is guarded. Possible discharge in 24 hours. The impression and plan of care has been dictated by Erendira Ruiz, nurse practitioner as directed. Dr. Phillip MD I have performed a history and examination and MDM of this patient, discussed the same with the dictator, and agree with the dictator's assessment and plan as written ,documented as a scribe. Based on total visit time, I have performed more than 50% of the visit. Any additional findings or plans will be noted. Objective - Vital Signs Vital signs: Vital Signs Temp 98 F 11/06/21 08:00 Pulse 61 11/06/21 08:00 Resp 18 11/06/21 08:00 BP 108/60 11/06/21 08:00 Pulse Ox 94 L 11/06/21 08:00 FiO2 Intake & Output 11/05/21 11/06/21 11/06/21 18:59 06:59 18:59 Intake Total 360 118 Balance 360 118 Intake: Oral 360 118 Other: # Voids 1 1 - Labs CBC & Chem 7: 11/06/21 04:59 11/06/21 04:59 Labs: Abnormal Lab Results - Last 24 Hours (Table) 11/05/21 11/05/21 11/06/21 Range/Units 12:06 21:57 04:59 RBC 3.75 L (4.40-5.60) X 10*6/uL Hgb 11.9 L (13.0-17.0) g/dL Hct 36.7 L (39.6-50.0) % MCV 97.9 H (80.0-97.0) fL POC Glucose (mg/dL) 125 H 125 H (70-110) mg/dL Microbiology - Last 24 Hours (Table) 11/04/21 10:45 Blood Culture - Preliminary Blood No Growth after 24 hours 11/04/21 10:50 Blood Culture - Preliminary Blood No Growth after 24 hours 11/04/21 10:43 Gram Stain - Preliminary Leg - Right Wound Culture - Preliminary
[2021-11-07 06:54] LABS: Glucose,Whole Blood 103 mg/dL (70-110)
[2021-11-07 12:02] LABS: Glucose,Whole Blood 102 mg/dL (70-110)
[2021-11-07] MEDS ORDERED: FUROSEMIDE 10 MG/ML 4 ML VIAL IV STA (12:18)
--- NOTE | 2021-11-07 16:48 | P.PN ---
Subjective Progress Note Date: 11/07/21 This is a 76-year-old male who was recently admitted with gouging injury on the right leg that it become more swollen and red and has been admitted for right leg cellulitis. Patient is currently being maintained on IV antibiotics with infectious disease following and awaiting cultures. Patient is afebrile denies chest pain or shortness of breath. Patient reports having difficulty with sleeping in the bed and in the hospital in general and will add a sleep aid as needed. Patient denies nausea or vomiting and is tolerating diet. 11/06/2021 Patient is seen today in follow up and continued on IV cefazolin and vanco has been discontinued with ID following and awaiting finalized cultures. Patient with lower extremity swelling and legs currently dependent while sitting in the chair. Encouraged the patient to elevate lower extremities and was also given a dose of IV lasix. Labs reviewed and within normal limits. Blood cultures remain negative. Patient is afebrile and denies chest pain or palpitations. Patient denies shortness of breath with no reports of nausea or vomiting noted. Will need to discuss with ID about discharge planning and if requiring IV antibiotics on discharge. 11/07/2021 Patient is seen and evaluated and follow-up this morning continues to have lower extremity swelling of bilateral lower extremities although more so on the right and did receive a dose of IV Lasix. After discussion with infectious disease recommendation to continue with IV cefazolin with close monitoring and also recommending continuing IV Lasix for continued swelling. Strongly encouraged again the patient to elevate lower extremities while at rest as patient does have them dependent with dressing noted. There is some improvement in the redness although does continue with significant swelling of the right lower extremity. Patient is afebrile and denies chest pain or shortness of breath. Patient denies nausea or vomiting and diarrhea is being tolerated. Recommend continue with Accu-Cheks before meals and at bedtime and blood sugars have been well controlled in the range of 92 to 129. Recommend repeat labs in the a.m. Review of systems: Constitutional: No reports of fatigue, fever, or chills Cardiovascular: No reports of chest pain or palpitations Respiratory: No reports of shortness of breath or cough GI: No reports of nausea, no reports of vomiting, no reports of diarrhea : No reports of dysuria or retention Neurovascular: no reports of generalized weakness, reports continued right leg swelling All medications have been reviewed Active Medications Acetaminophen (Acetaminophen Tab 325 Mg Tab) 650 mg PO Q6HR PRN PRN Reason: Mild Pain or Fever > 100.5 Atorvastatin Calcium (Atorvastatin 40 Mg Tab) 40 mg PO W/SUPPER [facility] Last Admin: 11/06/21 17:56 Dose: 40 mg Furosemide (Furosemide 10 Mg/Ml 2 Ml Vial) 20 mg IV ONCE ONE Stop: 11/07/21 18:01 Cefazolin Sodium 2 gm/ Sodium (Chloride) 50 mls @ 100 mls/hr IVPB Q8HR [facility] Last Admin: 11/07/21 16:35 Dose: 100 mls/hr Ibuprofen (Ibuprofen 400 Mg Tab) 400 mg PO Q6HR PRN PRN Reason: Mild Pain or Fever > 100.5 Losartan Potassium (Losartan 50 Mg Tab) 50 mg PO W/SUPPER [facility] Last Admin: 11/06/21 17:57 Dose: 50 mg Metoprolol Succinate (Metoprolol Succinate (Er) 25 Mg Tab.Er.24h) 25 mg PO W/SUPPER [facility] Last Admin: 11/06/21 17:57 Dose: 25 mg Naloxone HCl (Naloxone 0.4 Mg/Ml 1 Ml Vial) 0.2 mg IV Q2M PRN PRN Reason: Opioid Reversal Rivaroxaban (Rivaroxaban 20 Mg Tab) 20 mg PO W/SUPPER [facility]; Protocol Last Admin: 11/06/21 17:56 Dose: 20 mg Temazepam (Temazepam 15 Mg Cap) 15 mg PO HS PRN PRN Reason: Insomnia Last Admin: 11/06/21 22:41 Dose: 15 mg PHYSICAL EXAMINATION: GENERAL: The patient is alert and oriented x4, Well developed, well nourished. Obese. HEENT: Pupils are round and equally reacting to light. EOMI. no scleral icterus. No conjunctival pallor. Normocephalic, atraumatic. No pharyngeal erythema. No thyromegaly. CARDIOVASCULAR: S1 and S2 muffled PULMONARY: diminished breath sounds bilaterally with no wheezing or rhonchi noted. ABDOMEN: soft. Nontender on exam. obese. non-distended, normoactive bowel sounds. No palpable organomegaly. MUSCULOSKELETAL: No joint swelling or deformity. EXTREMITIES: No cyanosis, clubbing, or pedal edema. Right lower extremity with swelling and erythema with a marked site on the dunn with redness proving and continued swelling but does appear slightly improved from admission NEUROLOGICAL: Gross neurological examination did not reveal any focal deficits. SKIN: No rashes. Assessment: Acute cellulitis of the right mid leg with ulcer secondary to DM2 Diabetes mellitus type 2 Hypertension Hyperlipidemia multiple medical issues GI prophylaxis DVT prophylaxis Full code Plan: Recommend to continue with current medications and management with infectious disease following. Patient is maintained on IV cefazolin Preliminary culture showing some moderate gram-negative bacilli although micro-has reported specimen was insufficient. Patient reports to having some continued swelling of the lower extremity and was given a dose of IV lasix with minimal improvement. Discussed with infectious disease and would like to patient to receive additional doses of IV Lasix with close monitoring overnight for improvement in swelling. Encouraged the patient to keep the leg elevated as well. Recommend continue with local wound care. Encouraged increased activity as tolerated. Recommend Accu-Cheks before meals and at bedtime and sliding scale if blood sugars become elevated. Blood sugars are currently controlled. Recommend repeat labs and reevaluation in the morning of the swelling. Patient will likely discharge home on oral antibiotics. Due to multiple complex medical issues, prognosis is guarded. Possible discharge in 24 hours. The impression and plan of care has been dictated by Erendira Ruiz, nurse practitioner as directed. Dr. Phillip MD I have performed a history and examination and MDM of this patient, discussed the same with the dictator, and agree with the dictator's assessment and plan as written ,documented as a scribe. Based on total visit time, I have performed more than 50% of the visit. Any additional findings or plans will be noted. Objective - Vital Signs Vital signs: Vital Signs Temp 97.5 F L 11/07/21 07:43 Pulse 60 11/07/21 07:43 Resp 18 11/07/21 07:43 BP 118/65 11/07/21 07:43 Pulse Ox 94 L 11/07/21 07:43 FiO2 Intake & Output 11/06/21 11/07/21 11/07/21 18:59 06:59 18:59 Intake Total 596 550 Balance 596 550 Intake: Intake, IV Titration 50 Amount ceFAZolin 2 gm In Sodium 50 Chloride 0.9% 50 ml @ 100 mls/hr IVPB Q8HR [facility] Rx# :[id number] Oral 596 500 Other: Voiding Method Toilet # Voids 4 - Labs CBC & Chem 7: 11/06/21 04:59 11/06/21 04:59 Labs: Abnormal Lab Results - Last 24 Hours (Table) 11/06/21 Range/Units 21:14 POC Glucose (mg/dL) 129 H (70-110) mg/dL Microbiology - Last 24 Hours (Table) 11/04/21 10:45 Blood Culture - Preliminary Blood No Growth after 48 hours 11/04/21 10:50 Blood Culture - Preliminary Blood No Growth after 48 hours 11/04/21 10:43 Gram Stain - Final Leg - Right Wound Culture - Final
--- NOTE | 2021-11-07 17:02 | P.PN ---
Subjective Progress Note Date: 11/06/21 Principal diagnosis: Right lower extremity cellulitis Patient is a 76-year-old male with a recent injury to the right lower extremity with a cut and subsequently developing right lower extremity swelling and redness diagnosed with a cellulitis. On today's evaluation that is 11/06/2021, patient remains to be afebrile, patient denies having any chest pain or shortness of breath or cough right lower extremity still have significant swelling but redness is decreased and is no drainage Objective - Vital Signs Vital signs: Vital Signs Temp 98 F 11/06/21 08:00 Pulse 61 11/06/21 08:00 Resp 18 11/06/21 08:40 BP 108/60 11/06/21 08:00 Pulse Ox 94 L 11/06/21 08:00 FiO2 Intake & Output 11/05/21 11/06/21 11/06/21 18:59 06:59 18:59 Intake Total 360 118 Balance 360 118 Intake: Oral 360 118 Other: # Voids 1 1 - Exam GENERAL DESCRIPTION: An elderly male lying in bed in no distress RESPIRATORY SYSTEM: Unlabored breathing , decreased breath sounds at bases HEART: S1 S2 regular rate and rhythm , ABDOMEN: Soft , no tenderness EXTREMITIES: Right lower extremity swelling redness is slightly decreased, no dr nolen - Labs CBC & Chem 7: 11/06/21 04:59 11/06/21 04:59 Labs: Abnormal Lab Results - Last 24 Hours (Table) 11/05/21 11/06/21 Range/Units 21:57 04:59 RBC 3.75 L (4.40-5.60) X 10*6/uL Hgb 11.9 L (13.0-17.0) g/dL Hct 36.7 L (39.6-50.0) % MCV 97.9 H (80.0-97.0) fL POC Glucose (mg/dL) 125 H (70-110) mg/dL Microbiology - Last 24 Hours (Table) 11/04/21 10:45 Blood Culture - Preliminary Blood No Growth after 48 hours 11/04/21 10:50 Blood Culture - Preliminary Blood No Growth after 48 hours 11/04/21 10:43 Gram Stain - Final Leg - Right Wound Culture - Final Assessment and Plan (1) Cellulitis Current Visit: Yes Status: Acute Code(s): L03.90 - CELLULITIS, UNSPECIFIED SNOMED Code(s): 853353482 Plan: 1patient with right lower extremity cellulitis with diffuse swelling and redness in this patient with a history of trauma with a cut to the right posterior leg likely initiating factor for the cellulitis and will need to cover for the gram-positive skin marie to the likely pathogen. 2local culture has been obtained which are so far negative 3patient seemed to have some clinical improvement and will continue with cefazolin 2 g every 8 hours , patient did have significant swelling to the leg more likely from fluid overload we will Hep-Lock his IV fluid and give him a dose of Lasix Time with Patient: Less than 30
--- NOTE | 2021-11-07 17:04 | P.PN ---
Subjective Progress Note Date: 11/07/21 Principal diagnosis: Right lower extremity cellulitis Patient is a 76-year-old male with a recent injury to the right lower extremity with a cut and subsequently developing right lower extremity swelling and redness diagnosed with a cellulitis. On today's evaluation that is 11/07/2021, patient denies any fever or edges, patient denies having any chest pain or shortness of breath or cough , the patient right lower extremity still have significant swelling however the redness has much improved and there is no foul-smelling drainage Objective - Vital Signs Vital signs: Vital Signs Temp 97.5 F L 11/07/21 07:43 Pulse 60 11/07/21 07:43 Resp 18 11/07/21 07:43 BP 118/65 11/07/21 07:43 Pulse Ox 94 L 11/07/21 07:43 FiO2 Intake & Output 11/06/21 11/07/21 11/07/21 18:59 06:59 18:59 Intake Total 596 550 Balance 596 550 Intake: Intake, IV Titration 50 Amount ceFAZolin 2 gm In Sodium 50 Chloride 0.9% 50 ml @ 100 mls/hr IVPB Q8HR [facility] Rx# :[id number] Oral 596 500 Other: Voiding Method Toilet # Voids 4 - Exam GENERAL DESCRIPTION: An elderly male lying in bed in no distress RESPIRATORY SYSTEM: Unlabored breathing , decreased breath sounds at bases HEART: S1 S2 regular rate and rhythm , ABDOMEN: Soft , no tenderness EXTREMITIES: Right lower extremity swelling persist redness has improved no foul-smelling drainage - Labs CBC & Chem 7: 11/06/21 04:59 11/06/21 04:59 Labs: Abnormal Lab Results - Last 24 Hours (Table) 11/06/21 Range/Units 21:14 POC Glucose (mg/dL) 129 H (70-110) mg/dL Microbiology - Last 24 Hours (Table) 11/04/21 10:45 Blood Culture - Preliminary Blood No Growth after 48 hours 11/04/21 10:50 Blood Culture - Preliminary Blood No Growth after 48 hours 11/04/21 10:43 Gram Stain - Final Leg - Right Wound Culture - Final Assessment and Plan (1) Cellulitis Current Visit: Yes Status: Acute Code(s): L03.90 - CELLULITIS, UNSPECIFIED SNOMED Code(s): 443744907 Plan: 1patient with right lower extremity cellulitis with diffuse swelling and redness in this patient with a history of trauma with a cut to the right posterior leg likely initiating factor for the cellulitis and will need to cover for the gram-positive skin marie to the likely pathogen. 2local culture has been obtained which are so far negative 3patient still has significant swelling to the right lower extremity may benefit from some Lasix will also apply Jc wrap to keep the swelling down 4-we'll continue with cefazolin for a 24-hour with a plan to finish therapy with oral Keflex at the bedside multiple courses concerns were answered in Layman terms, plan of care was discussed with the SUPERVISOR PURIFICATION for admitting team Time with Patient: Less than 30
[2021-11-07 17:24] LABS: Glucose,Whole Blood 133 mg/dL (70-110)
[2021-11-07] MEDS: ATORVASTATIN 40 MG TAB PO SCH (17:35)
[2021-11-07] MEDS: LOSARTAN 50 MG TAB PO SCH (17:35)
[2021-11-07] MEDS: METOPROLOL SUCCINATE (ER) 25 MG TAB.ER.24H PO SCH (17:35)
[2021-11-07] MEDS: RIVAROXABAN 20 MG TAB PO SCH (17:35)
[2021-11-07] MEDS ORDERED: FUROSEMIDE 10 MG/ML 2 ML VIAL IV ONE (18:00)
[2021-11-07 20:34] VITALS: RESP 18
[2021-11-07 21:32] LABS: Glucose,Whole Blood 155 mg/dL (70-110)
[2021-11-08 07:18] LABS: Glucose,Whole Blood 110 mg/dL (70-110)
[2021-11-08 07:32] VITALS: BP 122/73; PULSE 66; TEMP 97.7
[2021-11-08 09:21] LABS: Anion Gap 9.8 mmol/L (10.00-18.00); BUN/Creat Ratio 22.21 Ratio (12.00-20.00); Blood Urea Nitrogen 23.1 mg/dL (9.0-27.0); C Reactive Protein 2.4 mg/dL (0.00-0.80); Carbon Dioxide 26.2 mmol/L (20.0-27.5); Non-African American GFR(CKD) 69.9 (60.0-200.0); Potassium 4.2 mmol/L (3.5-5.5)
[2021-11-08 09:29] LABS: Basophils # (A) 0.07 X 10*3/uL (0.00-0.10); Basophils % (A) 0.9 %; Eosinophils # (A) 0.34 X 10*3/uL (0.04-0.35); Eosinophils % (A) 4.1 %; HGB 13.2 g/dL (13.0-17.0); Immature Grans, Automated 0.1 %; Lymphocytes # (A) 1.39 X 10*3/uL (0.90-5.00); MCH 31.3 pg (27.0-32.0); MCV 94.8 fL (80.0-97.0); Mean Platelet Volume 11.7 fL (9.5-12.2); Monocytes # (A) 0.87 X 10*3/uL (0.20-1.00); Monocytes % (A) 10.6 %; NRBC Per 100 WBC 0 /100 WBCS (0.0-0.0); Neutrophils # (A) 5.52 X 10*3/uL (1.80-7.70); Neutrophils % (A) 67.3 %; Platelet Count 223 X 10*3/uL (140-440); RBC 4.22 X 10*6/uL (4.40-5.60)
[2021-11-08 12:57] LABS: Glucose,Whole Blood 88 mg/dL (70-110)
--- NOTE | 2021-11-09 02:41 | DS ---
DISCHARGE SUMMARY FINAL DIAGNOSES: 1. Acute cellulitis of right mid lung with ulcer secondary to diabetes type 2. 2. Diabetes mellitus type 2. 3. Hypertension. 4. Multiple medical issues. DISCHARGE DISPOSITION: The patient will be in discharged stable condition. Guarded prognosis. HISTORY OF PRESENT ILLNESS: This 76-year-old gentleman was admitted with significant infection of the posterior part of the right leg with cellulitis. The patient treated with IV antibiotics, Dr. Beach saw the patient. Cultures are negative. PHYSICAL EXAMINATION: VITAL SIGNS: Stable. CARDIOVASCULAR: S1 and S2 muffled. ABDOMEN: Soft, nondistended. NERVOUS SYSTEM: No focal deficits. The patient will be discharged in stable condition. Guarded prognosis. The patient is recommended to follow up with Dr. Hernandez and Dr. Beach in the outpatient setting, and a course of Keflex and doxycycline was recommended for [address] Beach and continue the rest of medications. Please refer to the medication reconciliation sheet for list of medications. MMODL / IJN: [id number] /
== END 2021-11-08 13:01 | disposition home or self-care (01) | DRG 638 ==
LOC: EC 09:47 → 4SSUR 12:41 → 6NMEDSUR 21:40
PROVIDERS: ADMIT Internal Medicine; ATTEND Internal Medicine
PROC: 3E0234Z Introduction of Serum, Toxoid and Vaccine into Muscle, Percutaneous Approach (ICD-10-PCS; principal; 2021-11-04)
DX: E11.628 Type 2 diabetes mellitus with other skin complications (principal); L03.115 Cellulitis of right lower limb; E11.622 Type 2 diabetes mellitus with other skin ulcer; L98.499 Non-pressure chronic ulcer of skin of other sites with unspecified severity; E78.5 Hyperlipidemia, unspecified; I10 Essential (primary) hypertension; I48.91 Unspecified atrial fibrillation; Z79.01 Long term (current) use of anticoagulants; Z79.84 Long term (current) use of oral hypoglycemic drugs; E04.1 Nontoxic single thyroid nodule; G47.33 Obstructive sleep apnea (adult) (pediatric); Z79.899 Other long term (current) drug therapy; Z23 Encounter for immunization
CPT/HCPCS: 36415; 80048; 80053; 82565; 83605; 85025; 86140; 87040; 87070; 87205; 90471; 90715; 96365; 96366; 96367; 99285

== ENCOUNTER → 2022-10-07 | Outpatient (CLI) | payer OTHER ==
--- NOTE | 2022-10-07 14:58 | P.SLEEP ---
History of Present Illness DATE: 10/07/2022 CONSULTATION/NEW PATIENT EVALUATION HISTORY OF PRESENT ILLNESS/SLEEP-WAKE EVALUATION: 77 year old gentleman had been evaluated in the sleep center for obstructive sleep apnea hypopnea syndrome. Patient has history of obstructive sleep apnea hypopnea syndrome diagnosed in the 2011. At that time polysomnogram showed severe obstructive sleep apnea with apnea-hypopnea index 66.1 and oxygen is trace to 76.6%. During the following years patient was tried on treatment with CPAP but after. Of usage for about 1 year, patient stopped using CPAP secondary to difficulties to use equipment. SLEEP SCHEDULE: Usually sleep schedule from 11 PM to 6 AM 7 days a week. FALLING ASLEEP: No problems with falling asleep. DURING SLEEP: Patient wakes up from sleep up to 3 times with one episode of nocturia. Positive history of awakenings with dry mouth. No history of hypnogogical hallucinations, sleep paralysis, or cataplexy. DURING THE DAY/WAKE STATE: In the morning patient wake up tired. Mccomb sleepiness scale is 8.. Patient doesn't take naps. PAST MEDICAL HISTORY: Hypertension, PreDiabetes, atrial fibrillation, PTSD. PAST SURGICAL HISTORY: Cardiac ablation for atrial fibrillation. MEDICATIONS: Metformin 500 mg twice a day, metoprolol 25 mg once a day, atorvastatin 40 mg once a day, losartan 50 mg once a day, Xarelto 20 mg once a day. SOCIAL HISTORY: Negative for smoking, alcohol consumption occasional. FAMILY HISTORY: Cancer. REVIEW OF SYSTEMS: Awakenings from sleep. No fevers. No double vision. No recent chest pain. No shortness of breath. No abdominal pain. No bleeding episodes. No blood in urine. No seizure episodes. PHYSICAL EXAMINATION: GENERAL: A pleasant patient without any distress. VITAL SIGNS: BP 121/62, HR 69, RR 20, weight 295 pounds, height 6 foot 2 inches, body mass index 44.4. HEENT: PERRLA, EOMI. Evaluation of oropharynx showed tongue protrudes midline, low position of soft palate Mallampati 4. NECK: Supple. No JVD. Thyroid is not palpable. 19.5 inches in circumference. LUNGS: Clear to percussion and to auscultation. Good air exchange. No wheezing or rhonchi. HEART: S1, S2 with irregularities. ABDOMEN: Soft and nontender. Bowel sounds are present. No organomegaly appreciated. EXTREMITIES: No clubbing or cyanosis. DOCTOR OF DENTAL SURGERY: Awake, alert, and oriented x3. Cranial nerves 2 to 7 intact. There is no fasciculation or atrophy noted. No focal deficits observed. ASSESSMENT: 1. Multiple awakenings from sleep, extremely low position of soft palate Mallampati 4, wide neck 19.5 inches in circumference, history of obstructive sleep apnea hypopnea syndrome in severe range in the past. Obstructive sleep apnea hypopnea syndrome. 2. Obesity, BMI 44.4. 3. History of PTSD. 4. Hypertension. 5 history of atrial fibrillation, status post cardiac ablation. 6 . Borderline levels of blood sugar. PLAN: 1. Polysomnography for evaluation of patient's breathing during sleep. 2. CPAP/BiPAP titration if sleep study confirms obstructive sleep apnea- hypopnea syndrome. 3. Preferable position during sleep on the side. 4. No driving if patient feels any sleepiness. Patient is aware of civil and criminal liability for unsafe driving. 5. Sleep hygiene with regular sleep time for at least 7.5-8 hours. 6. Watching and losing weight. Thank you very much for referring this patient for consultation. Sincerely, Rainer De Los Santos MD, PhD, FAASM. Diplomat of [place] Board of Sleep Medicine, Sleep Medicine Board by [place] Board of Medical Specialities [place] Board of Internal Medicine Diplomatic Officer of [facility] [place] Past Medical History Past Medical History: Atrial Fibrillation, Cancer, Diabetes Mellitus, Hyperlipidemia, Hypertension, Sleep Apnea/CPAP/BIPAP, Thyroid Disorder Additional Past Medical History / Comment(s): Afib in past but none since cardiac ablation, thyroid nodule that spouse believes was cancerous, MITZI-has a CPAP but does not use, shrapnel R leg, bilateral legs varicosities. History of Any Multi-Drug Resistant Organisms: None Reported Past Surgical History: Cardiac Ablation, Orthopedic Surgery, Tonsillectomy Additional Past Surgical History / Comment(s): thyroid lobecotomy, colonoscopy, L knee arthroscopy. Past Anesthesia/Blood Transfusion Reactions: No Reported Reaction Past Psychological History: No Psychological Hx Reported Smoking Status: Never smoker Past Alcohol Use History: None Reported Past Drug Use History: None Reported - Past Family History Father Family Medical History: Cancer Additional Family Medical History / Comment(s): Father of melanoma at the age of 64yrs. Grandfather on paternal side also had melanoma. Mother Family Medical History: No Reported History Additional Family Medical History / Comment(s): Mother was healthy. She at the age of 88yrs. Medications and Allergies Home Medications Medication Instructions Recorded Confirmed Type Atorvastatin [Lipitor] 40 mg PO W/SUPPER 03/12/16 11/04/21 History Rivaroxaban [Xarelto] 20 mg PO W/SUPPER 03/12/16 11/04/21 History Vitamin B Complex 1 cap PO W/SUPPER 03/12/16 11/04/21 History Metoprolol Succinate [Toprol XL] 25 mg PO W/SUPPER 02/11/18 11/04/21 History Omeprazole 20 mg PO AC-SUPPER 02/11/18 11/04/21 History Cholecalciferol (Vitamin D3) 75 mcg PO W/SUPPER 11/04/21 11/04/21 History [Vitamin D3 (3000 Iu)] Losartan [Cozaar] 50 mg PO W/SUPPER 11/04/21 11/04/21 History Turmeric Root Extract [Turmeric] 500 mg PO W/SUPPER 11/04/21 11/04/21 History metFORMIN HCL [Glucophage] 500 mg PO BID-W/MEALS 11/04/21 11/04/21 History Acetaminophen Tab [Tylenol] 650 mg PO Q6HR PRN tab 11/08/21 Rx Cephalexin [Keflex] 500 mg PO Q6HR 10 Days #40 cap 11/08/21 Rx Doxycycline Hyclate 100 mg PO BID 10 Days #20 tab 11/08/21 Rx Ibuprofen [Motrin] 400 mg PO Q6HR PRN tab 11/08/21 Rx Allergies Allergy/AdvReac Type Severity Reaction Status Date / Time No Known Allergies Allergy Verified 11/04/21 13:59 Sleep Note - Sleep Note Sleep Note: Temperature: Pulse Rate: Respiratory Rate: Blood Pressure: SpO2: Height: Weight: BMI: Neck Circumference:
== END ==
LOC: 3 N SLEEP 13:59
PROVIDERS: ATTEND Internal Medicine
DX: G47.33 Obstructive sleep apnea (adult) (pediatric) (principal); E66.9 Obesity, unspecified; Z68.41 Body mass index [BMI] 40.0-44.9, adult; I10 Essential (primary) hypertension; I48.91 Unspecified atrial fibrillation; F43.10 Post-traumatic stress disorder, unspecified; R73.03 Prediabetes
CPT/HCPCS: 99211

== ENCOUNTER 2023-01-19 19:07 | Outpatient (CLI) | payer OTHER ==
--- NOTE | 2023-01-20 11:22 | P.PCN ---
Description of Procedure: CLINICAL: Titration with positive air pressure has been done for correction of respiratory abnormalities during sleep. DESCRIPTION OF PROCEDURE: The standard montage for clinical polysomnography included the electroencephalogram, the electrocardiogram, the mentalis surface electromyography and Lead II cardiography. The respiratory battery consisted of measurements of nasal /buccal air flow, pressure transducer measurements from the nose, thoracic and /or abdominal effort and intercostal surface electromyography. Video monitoring has been done to check for any parasomnia events. Nocturnal oxyhemoglobin saturations were obtained by finger oximetry. Step-noel titration with positive airway pressure was utilized to control respiratory events. Raw data of sleep recording has been reviewed and is adequate. RESULTS: Sleep efficiency was normal 88.4 %. Latency to sleep onset was 6.5 minutes.]. Sleep architecture showed stage N1 was slightly increased to 10.5 %, Delta sleep was normal 5.8 %, REM sleep slightly decreased to 15.1 %. Heart rate was minimum 54 BPM, maximum 60 BPM, average 57 BPM. EMG showed 9.7 periodic limb movements per hour with 4.0 micriarousals per hour. PAP titration have been done with CPAP up to the pressure 13 cm H2O. Patient had problems with CPAP, switched to BPAP. BPAP titrated up to 18/14 cm H2O. The best results were at the pressure 18/14 cm H2O. Apnea hypopnea index reduced to 4. IMPRESSION: 1. Obstructive sleep apnea hypopnea syndrome mostly on controle with BPAP treatment. 2. No significant periodic limb movements following today's criteria have been documented. Please see other impressions from consultation. PLAN: 1. The patient will have treatment with positive air pressure equipment with the level of pressure AutoBPAP maximal inspiratory pressure 19 and minimal expiratory pressure 10, pressure-support 4 cm H2O and should use it every night for the whole night. 2. Watching and losing weight. 3. Sleep hygiene with regular time in bed for at least 8 hours. 4. No driving if feeling any sleepiness. 5. I will see the patient for follow up visit to explain the results of the test, recommendations, check compliance with treatment and make any necessary adjustment related to mask fitting, pressure and humidification. Thank you very much for allowing me to participate in the management of your patient. Sincerely, Rainer De Los Santos MD, PhD, FAASM Diplomat of [place] [employer] Sleep Medicine Board of [place] Board of Internal Medicine [employer] [facility] [place]
== END 2023-01-20 05:00 | disposition home or self-care (01) ==
LOC: 3 N SLEEP 19:07
PROVIDERS: ATTEND Internal Medicine
DX: G47.33 Obstructive sleep apnea (adult) (pediatric) (principal)
CPT/HCPCS: 95811

== ENCOUNTER → 2023-07-05 | Outpatient (CLI) | payer MEDICARE ==
--- NOTE | 2023-07-05 13:54 | US ---
LOWER EXTREMITY VENOUS INSUFFICIENCY CLINICAL INDICATION: Male, 78 years old with history of I87.2 VENOUS INSUFFICIENCY; Edema, discolorat ion within the legs. No hx of DVT. Patient is on Xarelto. PRIOR STUDY: Venous doppler bilateral 2012 SIDE PERFORMED: Bilateral 1) Color flow is present and patency is documented in the following vessels. No DVT or SVT is noted . Common Femoral Vein Deep Femoral Vein Femoral Vein Popliteal Vein Proximal Calf Veins Greater Saph Vein Upper Small Saph Vein 2) There is venous reflux noted at the following venous levels: There appears to be reflux within b ilateral CFV, right GSV, and left deep femoral vein. IMPRESSION: Reflux as noted
== END | disposition home or self-care (01) ==
LOC: RADUSWWP 12:25
PROVIDERS: ATTEND Family Medicine
DX: I87.2 Venous insufficiency (chronic) (peripheral) (principal); R60.0 Localized edema; Z79.01 Long term (current) use of anticoagulants
CPT/HCPCS: 93970

== ENCOUNTER → 2023-07-15 | Outpatient (CLI) | payer MEDICARE ==
[2023-07-15 09:00] LABS: African American GFR (CKD) >90 (>60 ml/min/1.73 sqM); Blood Urea Nitrogen 21 mg/dL (9-20); Non-African American GFR(CKD) 78 (>60 ml/min/1.73 sqM)
--- NOTE | 2023-07-15 09:58 | CT ---
EXAMINATION TYPE: CT angio chest CT DLP: 899.50 mGycm, Automated exposure control for dose reduction was used. DATE OF EXAM: 07/15/2023 9:46 AM COMPARISON: 02/11/2018 CLINICAL INDICATION:Male, 78 years old with history of R79.1 ABNORMAL COAGULATION PROFILE; Abnormal c oagulation profile, SOB. TECHNIQUE/CONTRAST: CTA scan of the thorax is performed with IV Contrast, patient injected with 100 mL of Isovue 370, MIP images are created and reviewed these are created on a separate workstation.. FINDINGS: Pulmonary Artery: There is no evidence for a filling defect within the pulmonary vasculature to sugge st acute pulmonary embolism. The pulmonary artery is of normal size. Lungs/Pleura: No evidence of focal consolidation, pleural effusion or pneumothorax. Right lower lobe superior segment 5 mm pulmonary nodule series 5 image 75 right major fissure intrafissural lymph node series 5 image 69. 2 mm nodule series 5 image 67 in the left lower lobe Airway: Large airways are patent. Heart: Heart is within normal limits for size. Moderate coronary artery cusp patient's. Vasculature: No evidence of aortic aneurysm. Mediastinum: No gross evidence of adenopathy. Musculoskeletal: No acute osseous abnormalities Soft Tissues: Unremarkable. Lower neck: No significant findings. Upper Abdomen: Lipomatous atrophy changes of the pancreatic parenchyma. IMPRESSION: 1. No evidence of pulmonary embolism. 2. Couple sub-6 mm pulmonary nodules. Consider surveillance imaging in one year. Follow up recommendations for incidental pulmonary nodules, if there are any, are per [employer] or [employer]. https://radiopaedia.org/articles/[email or web address]?lang=us
== END | disposition home or self-care (01) ==
LOC: RADCTMAIN 07:40
PROVIDERS: ATTEND Family Medicine
DX: R91.8 Other nonspecific abnormal finding of lung field (principal); R79.1 Abnormal coagulation profile; R06.02 Shortness of breath
CPT/HCPCS: 82565; 84520; 71275; 36415; Q9967

== ENCOUNTER → 2024-07-17 | Outpatient (CLI) | payer MEDICARE ==
[2024-07-17 12:22] LABS: African American GFR (CKD) 80 (>60 ml/min/1.73 sqM); Blood Urea Nitrogen 24 mg/dL (9-20); Non-African American GFR(CKD) 70 (>60 ml/min/1.73 sqM)
--- NOTE | 2024-07-17 13:22 | CT ---
EXAMINATION TYPE: CT chest w con DATE OF EXAM: 07/17/2024 1:01 PM COMPARISON: None. CLINICAL INDICATION: Male, 79 years old with history of R91.1 SOLITARY PULMONARY NODULE, PULMONARY NO DULE TECHNIQUE: Axial images were obtained at 5 mm thick sections. Reconstructed images are reviewed on [employer] computer in the coronal plane. Contrast used:100 ml mL of Isovue 300 with IV Contrast, (none if empty) Oral contrast used: (none if empty) CT DLP: 680 mGycm, Automated exposure control for dose reduction was used. FINDINGS: Left lobe thyroid is heterogenous with a hypodensity in the lower pole. Right lobe thyroid appears to be surgically absent Punctate densities posterior lateral right midlung. Series 4 image 31. Stable comparison. Punctate de nsity in the anterior right lung series 4 image 31 is likewise stable. Punctate nodularity within the posterior left superior segment lower lobe is stable from comparison. Series 4 image 28. No enlarged mediastinal adenopathy. The ascending aorta diameter at the level of the main pulmonary a rtery is 3.8 cm. The main pulmonary artery diameter at the bifurcation is 2.8 cm. Moderate coronary artery calcifications present. Limited CT sections are obtained through the upper abdomen. Mild to moderate fatty infiltration of th e liver is present. Impression pancreas IMPRESSION: 1. Stable sub 0.6 cm nodules. Follow-up in one year is recommended 2. Mild to moderate fatty infiltration of the visualized liver X-Ray Chanelle Anton, Workstation: [facility], 07/17/2024 1:20 PM
== END | disposition home or self-care (01) ==
LOC: RADCTMAIN 11:26
PROVIDERS: ATTEND Family Medicine
DX: R91.8 Other nonspecific abnormal finding of lung field (principal); K76.0 Fatty (change of) liver, not elsewhere classified; E11.9 Type 2 diabetes mellitus without complications
CPT/HCPCS: 82565; 84520; 71260; 36415; Q9967

== ENCOUNTER → 2024-08-22 | Outpatient (CLI) | payer OTHER ==
--- NOTE | 2024-08-22 12:15 | CA ---
Lexiscan Nuclear Stress Test Report Name: Saúl Connolly Exam Date: 08/22/2024 11:16 Exam Location: [facility] Ht (in): 74 Wt (lb): 290 BSA: 2.54 Ordering Phys: Israel Mark MD Referring Phys: Israel Mark MD Technologist: Jez Florence Age: 79 Gender: M : 1945 Procedure CPT: Indications: R07.9 CHEST PAIN, UNSPECIFIED ICD-10 Codes: Patient History: Medications: see list Meds past 24 hrs: Pretest Chest Pain: STRESS TEST Lexiscan Protocol Exercise Duration (min:sec): 01:[address] Depressions (mm): Angina Score: Holliday Score: Resting HR (bpm): 53 Peak HR (bpm): 75 Resting BP (mmHg): 143 / 90 Peak BP (mmHg): 100 / 53 MPHR: 142 Target HR: 121 % MPHR: 53 METS: 1.0 Total Dose: Peak Dose: Atropine: Double Product: 7500 BP Response: Stress Termination: INFUSION COMPLETE Stress Symptoms: DIFFICULTY IN BREATHING Stress Summary: ECG ANALYSIS Resting ECG: Sinus rhythm. Normal conduction. No arrhythmias. Nonspecific ST-T abnormality. Stress ECG: No ECG changes from baseline with Lexiscan infusion. CONCLUSIONS No ECG evidence of ischemia with Lexiscan infusion. Nuclear test results to follow. Dr. Teofilo Booth MD (Electronically Signed) Final Date: 22 August 2024 12:14
--- NOTE | 2024-08-22 12:36 | NM ---
EXAMINATION TYPE: NM stress lexiscan cardiolite DATE OF EXAM: 08/22/2024 COMPARISON: Prior stress test 2015 CLINICAL INDICATION: Male, 79 years old with history of R07.9 CHEST PAIN, UNSPECIFIED; history of hyp ertension and diabetes. TECHNIQUE: After the intravenous administration of 10.26 mCi Tc 99m Sestamibi - Cardiolite resting S PECT images acquired 45 minutes post injection. The patient received 0.4mg Lexiscan, 23.3 mCi Tc 99m Sestamibi - Stress images obtained [address] injection FINDINGS: Review of stress and rest SPECT images demonstrates no distinct perfusion abnormality. Gated analysi s shows normal wall motion with an estimated left ventricular ejection fraction of 63 %. IMPRESSION: No scintigraphic evidence for reversible ischemia. No significant change from prior. [facility], , 08/22/2024 12:33 PM
== END | disposition home or self-care (01) ==
LOC: RADNMMAIN 08:53
PROVIDERS: ATTEND Internal Medicine
DX: I10 Essential (primary) hypertension (principal); E11.9 Type 2 diabetes mellitus without complications
CPT/HCPCS: 93017; 78452; A9500